=== PATIENT | male | born 1980 | race Caucasian/White ===

== ENCOUNTER → 2017-05-02 06:50 | Outpatient (CLI) | payer OTHER, SELFPAY ==
--- NOTE | 2017-05-02 06:52 | NM_ITS ---
History and Indications: Hypertension, hyperlipidemia, tobacco use and fatigue Procedure: Patient exercised on Baljinder protocol 8 minutes, resting heart rate was 78 bpm, resting blood pressure 170/90, with exercise maximum heart rate achieved was 1 52 bpm which is equal to 84% of the maximum predicted heart rate and a blood pressure was 244/90. Test was started due to hypertensive blood pressure response, patient denied any complained of chest pain. Patient has good exercise capacity achieved 10.1mets of workload on treadmill, the blood pressure response to exercise was hypertensive. Electrocardiogram: Resting electrocardiogram showed sinus rhythm right ventricular conduction delay, with exercise there is less than 1.[address] segment depression noted from the baseline EKG. The EKG portion of the exercise Myoview is nondiagnostic as patient did not achieve the target heart rate. Cardiac stress and resting SPECT images: Cardiac stress and resting SPECT images were obtained using technetium 99 Myoview 10.3 mCi at rest 31.7 mCi at stress, gated SPECT further analysis of segmental wall motion and calculation of the ejection fraction also done. Cardiac stress and rest images show a mild fixed defect in the inferior wall with normal contractility in the gated SPECT is likely secondary to soft tissue attenuation, no reversible ischemia seen. Computer derived ejection fraction is 58% with no obvious regional wall motion abnormality, right ventricle is mildly enlarged with normal contractility. Conclusion: 1. The EKG portion of the exercise Myoview is nondiagnostic as patient did not achieve the target heart rate, patient has good exercise capacity achieved 10.1mets of workload on treadmill, the blood pressure response to exercise was hypertensive, there was no exercise-induced chest discomfort. 2. No obvious scintigraphic evidence of reversible ischemia seen at this level of exercise, computer derived ejection fraction is 58% with no obvious regional wall motion abnormality, right ventricle is mildly enlarged with normal contractility.
[2017-05-02 10:46] LABS: Basophils # 0.1 K/mm3 (0-0.2); Basophils % 0.8 % (0.1-2.0); Eosinophils # 0.2 K/mm3 (0.0-0.4); Eosinophils % 2.2 % (0.1-12.0); Hematocrit 49.6 % (42.0-52.0); Hemoglobin 17.3 g/dL (14.1-18.0); Lymphocytes # 2.3 K/mm3 (0.7-4.5); Mean Corpuscular Hemoglobin 32.5 pg (27.0-31.2); Mean Platelet Volume 10.2 fl (7.4-10.4); Monocytes # 0.5 K/mm3 (0.1-1.0); Monocytes % 5.9 % (1.7-9.3); Neutrophils # 5.1 K/mm3 (1.8-7.8); Neutrophils % 63.2 % (37.0-80.0); Platelet Count 219 K/mm3 (142-424); Red Blood Count 5.33 M/mm3 (4.60-6.20); Red Cell Distribution Width 12.9 % (11.5-17.5); White Blood Count 8.1 K/mm3 (4.8-10.8)
== END ==
PROVIDERS: Family Provider Internal Medicine Adolescent Medicine; PCP Internal Medicine Adolescent Medicine; Visit Provider Nurse Practitioner Family
DX: R07.9 Chest pain, unspecified (principal); I10 Essential (primary) hypertension; E78.1 Pure hyperglyceridemia; Z72.0 Tobacco use
CPT/HCPCS: 36415; 78452; 85025; 93017; A9502

== ENCOUNTER → 2017-05-03 13:13 | Outpatient (CLI) | payer OTHER, SELFPAY ==
[2017-05-03 16:17] LABS: Alanine Aminotransferase 61 U/L (12-78); Albumin Level 4.4 gm/dL (3.4-5.0); Albumin/Globulin Ratio 1.5 (1.1-1.8); Alkaline Phosphatase 81 U/L (46-116); Anion Gap 12.1 mEq/L (5-15); Bilirubin,Total 0.5 mg/dL (0.2-1.0); Blood Urea Nitrogen 12 mg/dL (7-18); Calcium 9.5 mg/dL (8.5-10.1); Carbon Dioxide 30 mmol/L (21.0-32.0); Chloride 102 mmol/L (98-107); Chol/HDL Ratio 4.9 (1-3.5); Cholesterol 191 mg/dL (140-200); Creatinine,Serum 0.93 mg/dL (0.70-1.30); Estimated Glomerular Filt Rate 91 ml/min (>60); GFR (African American) 110 ML/MIN (>60); Globulin 2.9 gm/dl (1.3-3.2); Glucose 89 mg/dL (74-106); HDL Cholesterol 39 mg/dL (27-67); Sodium 140 mmol/L (136-145); Thyroid Stimulating Hormone 1.43 uIU/ml (0.358-3.740); Total Protein,Serum 7.3 gm/dL (6.4-8.2)
[2017-05-03 16:25] LABS: Triglycerides 563 mg/dL (30-200)
[2017-05-03 16:26] LABS: Aspartate Amino Transferase 25 U/L (15-37); Potassium 4.1 mmoL/L (3.5-5.1)
== END ==
PROVIDERS: PCP Nurse Practitioner Family; Visit Provider Nurse Practitioner Family
DX: I10 Essential (primary) hypertension (principal); E78.1 Pure hyperglyceridemia; Z72.0 Tobacco use
CPT/HCPCS: 36415; 80053; 80061; 84443

== ENCOUNTER → 2018-03-03 15:12 | Outpatient (CLI) | payer OTHER, SELFPAY ==
[2018-03-03 15:29] LABS: Basophils # 0.1 K/mm3 (0-0.2); Basophils % 0.9 % (0.1-2.0); Eosinophils # 0.2 K/mm3 (0.0-0.4); Eosinophils % 2.5 % (0.1-12.0); Hematocrit 49.5 % (42.0-52.0); Hemoglobin 17.1 g/dL (14.1-18.0); Lymphocytes # 1.9 K/mm3 (0.7-4.5); Lymphocytes % 21.4 % (10-50); Mean Corpuscular HGB Conc 34.4 g/dL (31.8-35.4); Mean Corpuscular Hemoglobin 32.5 pg (27.0-31.2); Mean Corpuscular Volume 94.4 fl (80-94); Mean Platelet Volume 8.7 fl (7.4-10.4); Monocytes # 0.4 K/mm3 (0.1-1.0); Monocytes % 5.1 % (1.7-9.3); Neutrophils # 6.1 K/mm3 (1.8-7.8); Neutrophils % 70.1 % (37.0-80.0); Platelet Count 221 K/mm3 (142-424); Red Blood Count 5.25 M/mm3 (4.60-6.20); White Blood Count 8.7 K/mm3 (4.8-10.8)
[2018-03-03 16:34] LABS: Troponin I < 0.02 ng/ml (0.00-0.06)
[2018-03-03 16:36] LABS: Albumin/Globulin Ratio 1.1 (1.1-1.8); Alkaline Phosphatase 72 U/L (46-116); Anion Gap 13.1 mEq/L (5-15); Bilirubin,Total 0.4 mg/dL (0.2-1.0); Blood Urea Nitrogen 13 mg/dL (7-18); CKMB Relative Index 1.1 U/L (0-4.0); Calcium 8.8 mg/dL (8.5-10.1); Carbon Dioxide 27 mmol/L (21.0-32.0); Chloride 101 mmol/L (98-107); Creatine Kinase 180 U/L (39-308); Creatinine,Serum 1.11 mg/dL (0.70-1.30); Estimated Glomerular Filt Rate 74 ml/min (>60); GFR (African American) 89 ML/MIN (>60); Globulin 3.5 gm/dl (1.3-3.2); Potassium 4.1 mmoL/L (3.5-5.1); Sodium 137 mmol/L (136-145); Thyroid Stimulating Hormone 1.23 uIU/ml (0.358-3.740); Total Protein,Serum 7.5 gm/dL (6.4-8.2)
[2018-03-03 19:52] LABS: Aspartate Amino Transferase 38 U/L (15-37)
[2018-03-03 19:53] LABS: Glucose 113 mg/dL (74-106)
[2018-03-03 19:54] LABS: Alanine Aminotransferase 51 U/L (12-78)
== END ==
PROVIDERS: Visit Provider Internal Medicine Adolescent Medicine
DX: E78.1 Pure hyperglyceridemia (principal); R42 Dizziness and giddiness; R07.9 Chest pain, unspecified
CPT/HCPCS: 36415; 80053; 82550; 82553; 84443; 84484; 85025

== ENCOUNTER → 2018-03-06 09:30 | Outpatient (CLI) | payer OTHER, SELFPAY ==
--- NOTE | 2018-03-06 09:35 | CI_ITS ---
Cerebrovascular Exam Indications: 780.4 Dizziness and giddiness. IMPRESSIONS 1. The bilateral vertebral arteries are patent with normal antegrade flow. 2. Study suggests less than 20% stenosis involving the right internal carotid artery and the left internal carotid artery. History: Risk factors: Current tobacco use. Carotid duplex study. Complete study and Doppler flow study including spectral analysis, color and paul scale imaging. Location: Vascular laboratory. Patient status: Outpatient. Tables: Arterial flow: + +--------+--------+ Location V sys V ed + +--------+--------+ Right CCA - proximal 91.1cm/s 17.3cm/s + +--------+--------+ Right CCA - distal 108cm/s 28.3cm/s + +--------+--------+ Right ECA 93.6cm/s -------- + +--------+--------+ Right ICA - proximal 79.4cm/s 29.1cm/s + +--------+--------+ Right ICA - mid 96.6cm/s 41.6cm/s + +--------+--------+ Right ICA - distal 96.9cm/s 38.1cm/s + +--------+--------+ Right vertebral 42.1cm/s -------- + +--------+--------+ Left CCA - proximal 98.3cm/s 21.4cm/s + +--------+--------+ Left CCA - distal 109cm/s 28.7cm/s + +--------+--------+ Left ECA 83.3cm/s -------- + +--------+--------+ Left ICA - proximal 63.5cm/s 22.7cm/s + +--------+--------+ Left ICA - mid 89.6cm/s 33.4cm/s + +--------+--------+ Left ICA - distal 91.6cm/s 37cm/s + +--------+--------+ Left vertebral 54.2cm/s -------- + +--------+--------+ Velocity ratios: + + + + + + Right, V sys Right, V ed Left, V sys Left, V ed + + + + + + Max ICA/dist CCA 0.9 1.47 0.84 1.29 + + + + + + (Report amended ) Electronically signed by: Alan Skinner [id number]
== END ==
PROVIDERS: PCP Internal Medicine Adolescent Medicine; Visit Provider Internal Medicine Adolescent Medicine
DX: R42 Dizziness and giddiness (principal)
CPT/HCPCS: 93880

== ENCOUNTER → 2018-07-09 08:04 | Outpatient (CLI) | payer OTHER, SELFPAY | PROVIDERS: PCP Internal Medicine Adolescent Medicine; Visit Provider Nurse Practitioner Family | DX: R07.9 Chest pain, unspecified (principal); R06.02 Shortness of breath; E78.5 Hyperlipidemia, unspecified; F17.200 Nicotine dependence, unspecified, uncomplicated; I10 Essential (primary) hypertension; I65.29 Occlusion and stenosis of unspecified carotid artery | CPT/HCPCS: 93306 ==

== ENCOUNTER → 2019-05-13 12:50 | Outpatient (CLI) | payer OTHER, SELFPAY ==
[2019-05-13 13:43] LABS: Basophils # 0.1 K/mm3 (0-0.2); Basophils % 1.1 % (0.1-2.0); Eosinophils # 0.2 K/mm3 (0.0-0.4); Eosinophils % 2.1 % (0.1-12.0); Hematocrit 48.8 % (42.0-52.0); Hemoglobin 16.9 g/dL (14.1-18.0); Lymphocytes # 2.1 K/mm3 (0.7-4.5); Lymphocytes % 28.4 % (10-50); Mean Corpuscular HGB Conc 34.6 g/dL (31.8-35.4); Mean Corpuscular Hemoglobin 33.1 pg (27.0-31.2); Mean Corpuscular Volume 95.8 fl (80-94); Mean Platelet Volume 9.8 fl (7.4-10.4); Monocytes # 0.3 K/mm3 (0.1-1.0); Monocytes % 3.7 % (1.7-9.3); Neutrophils # 4.8 K/mm3 (1.8-7.8); Neutrophils % 64.8 % (37.0-80.0); Platelet Count 224 K/mm3 (142-424); Red Blood Count 5.09 M/mm3 (4.60-6.20); Red Cell Distribution Width 13.4 % (11.5-17.5); White Blood Count 7.4 K/mm3 (4.8-10.8)
[2019-05-13 17:18] LABS: Alanine Aminotransferase 34 U/L (12-78); Albumin Level 4.6 g/dl (3.5-5.0); Albumin/Globulin Ratio 1.6 (1.1-1.8); Alkaline Phosphatase 55 U/L (38-126); Aspartate Amino Transferase 27 U/L (17-59); Bilirubin,Total 0.3 mg/dl (0.2-1.3); Blood Urea Nitrogen 12 mg/dl (9-20); Calcium 10.2 mg/dl (8.4-10.2); Carbon Dioxide 27 mmol/L (22.0-30.0); Chloride 102 mmol/L (98-107); Chol/HDL Ratio 10.3 (1-3.5); Cholesterol 277 mg/dl (140-200); Estimated Glomerular Filt Rate 93 ml/min (>60); GFR (African American) 113 ML/MIN (>60); Globulin 2.8 g/dL (1.3-3.2); Glucose 132 mg/dl (74-100); HDL Cholesterol 27 mg/dl (40-60); Sodium 136 mmol/L (136-145); Total Protein,Serum 7.4 g/dl (6.3-8.2)
[2019-05-13 17:30] LABS: Direct LDL Cholesterol 84.71 mg/dL (100-129)
[2019-05-13 17:45] LABS: Triglycerides 1122 mg/dl (30-150)
[2019-05-15 13:34] LABS: Hemoglobin A1C 4.9 % (4.0-6.0)
== END ==
PROVIDERS: Internal Medicine Adolescent Medicine; Visit Provider Nurse Practitioner Family
DX: I10 Essential (primary) hypertension (principal); E78.1 Pure hyperglyceridemia; Z77.011 Contact with and (suspected) exposure to lead; Z02.89 Encounter for other administrative examinations; R73.9 Hyperglycemia, unspecified
CPT/HCPCS: 36415; 80053; 80061; 83036; 83655; 85025

== ENCOUNTER → 2020-10-24 12:42 | Outpatient (CLI) | payer OTHER, SELFPAY ==
[2020-10-24 13:52] LABS: Basophils # 0.1 K/mm3 (0-0.2); Eosinophils # 0.1 K/mm3 (0.0-0.4); Monocytes # 0.6 K/mm3 (0.1-1.0); Platelet Count 195 K/mm3 (142-424); Red Cell Distribution Width 13.6 % (11.5-17.5)
[2020-10-24 14:22] LABS: Eosinophils % 1.2 % (0.1-12.0); Hematocrit 52.8 % (42.0-52.0); Lymphocytes # 1.6 K/mm3 (0.7-4.5); Lymphocytes % 17.3 % (10-50); Mean Corpuscular HGB Conc 34.8 g/dL (31.8-35.4); Mean Corpuscular Hemoglobin 33.7 pg (27.0-31.2); Mean Corpuscular Volume 96.8 fl (80-94); Mean Platelet Volume 10.2 fl (7.4-10.4); Monocytes % 6.1 % (1.7-9.3); Neutrophils # 6.8 K/mm3 (1.8-7.8); Neutrophils % 74.4 % (37.0-80.0); Red Blood Count 5.46 M/mm3 (4.60-6.20); White Blood Count 9.1 K/mm3 (4.8-10.8)
[2020-10-24 14:25] LABS: Hemoglobin 18.4 g/dL (14.1-18.0)
[2020-10-24 14:54] LABS: Alanine Aminotransferase 61 U/L (12-78); Albumin/Globulin Ratio 1.7 (1.1-1.8); Alkaline Phosphatase 74 U/L (38-126); Anion Gap 16.4 mEq/L (5-15); Aspartate Amino Transferase 39 U/L (17-59); Bilirubin,Total 0.7 mg/dl (0.2-1.3); Blood Urea Nitrogen 13 mg/dl (9-20); Carbon Dioxide 26 mmol/L (22.0-30.0); Chloride 101 mmol/L (98-107); Chol/HDL Ratio 6.2 (1-3.5); Cholesterol 284 mg/dl (140-200); Estimated Glomerular Filt Rate 93 ml/min (>60); GFR (African American) 112 ML/MIN (>60); Globulin 2.9 g/dL (1.3-3.2); Glucose 92 mg/dl (74-100); HDL Cholesterol 46 mg/dl (40-60); Potassium 4.4 mmoL/L (3.5-5.1); Sodium 139 mmol/L (136-145); Total Protein,Serum 7.9 g/dl (6.3-8.2)
[2020-10-24 15:04] LABS: Triglycerides 747 mg/dl (30-150)
[2020-10-24 15:05] LABS: Direct LDL Cholesterol 120.22 mg/dL (100-129)
[2020-10-24 18:21] LABS: Troponin I < 0.01 ng/ml (0.00-0.034)
== END ==
PROVIDERS: Visit Provider Nurse Practitioner Family
DX: E78.1 Pure hyperglyceridemia (principal); I16.0 Hypertensive urgency; Z72.0 Tobacco use
CPT/HCPCS: 80053; 80061; 84484; 85025

== ENCOUNTER → 2021-04-17 11:37 | Outpatient (CLI) | payer OTHER, SELFPAY ==
[2021-04-17 12:35] LABS: Basophils # 0.1 K/mm3 (0-0.2); Basophils % 1.5 % (0.1-2.0); Eosinophils # 0.2 K/mm3 (0.0-0.4); Eosinophils % 2.6 % (0.1-12.0); Hematocrit 49.6 % (42.0-52.0); Lymphocytes # 1.7 K/mm3 (0.7-4.5); Lymphocytes % 23.8 % (10-50); Mean Corpuscular HGB Conc 34.3 g/dL (31.8-35.4); Mean Corpuscular Hemoglobin 33.8 pg (27.0-31.2); Mean Corpuscular Volume 98.7 fl (80-94); Mean Platelet Volume 9.2 fl (7.4-10.4); Monocytes # 0.4 K/mm3 (0.1-1.0); Monocytes % 5.9 % (1.7-9.3); Neutrophils # 4.7 K/mm3 (1.8-7.8); Neutrophils % 66.2 % (37.0-80.0); Platelet Count 251 K/mm3 (142-424); Red Blood Count 5.02 M/mm3 (4.60-6.20); Red Cell Distribution Width 13.3 % (11.5-17.5); White Blood Count 7.1 K/mm3 (4.8-10.8)
[2021-04-17 13:23] LABS: Chloride 102 mmol/L (98-107); Potassium 4.1 mmoL/L (3.5-5.1); Sodium 137 mmol/L (136-145)
[2021-04-17 13:25] LABS: Blood Urea Nitrogen 10 mg/dl (9-20); Estimated Glomerular Filt Rate 106 ml/min (>60); GFR (African American) 128 ML/MIN (>60)
[2021-04-17 13:26] LABS: Anion Gap 13.1 mEq/L (5-15); Calcium 9.8 mg/dl (8.4-10.2); Carbon Dioxide 26 mmol/L (22.0-30.0); Chol/HDL Ratio 8.2 (1-3.5); Cholesterol 254 mg/dl (140-200); Glucose 95 mg/dl (74-100); HDL Cholesterol 31 mg/dl (40-60)
[2021-04-17 13:37] LABS: Direct LDL Cholesterol 89.15 mg/dL (100-129)
[2021-04-17 14:02] LABS: Ferritin 290 ng/ml (17.9-464)
[2021-04-17 14:10] LABS: Triglycerides 1017 mg/dl (30-150)
== END ==
PROVIDERS: Visit Provider Internal Medicine Adolescent Medicine
DX: I10 Essential (primary) hypertension (principal); E78.5 Hyperlipidemia, unspecified
CPT/HCPCS: 36415; 80048; 80061; 82728; 85025

== ENCOUNTER → 2021-12-30 10:39 | Outpatient (CLI) | payer OTHER, SELFPAY ==
--- NOTE | 2021-12-30 10:39 | MR_ITS ---
PROCEDURE INFORMATION: Exam: MR Right Upper Extremity Joint Without Contrast; Elbow Exam date and time: 12/30/2021 11:29 AM Age: 41 years old Clinical indication: Other: Dafter pop; Additional info: Distal bicep. Distal bicep. Dafter pop at work x 3-4 weeks ago. Tender TECHNIQUE: Imaging protocol: Magnetic resonance imaging of the Right upper extremity without contrast. Exam focused on the elbow. COMPARISON: No relevant prior studies available. FINDINGS: Bones and cartilage: This study is limited by partial failure of fat saturation. Degenerative spurring is identified of the proximal ulna, with involvement of the olecranon process and coronoid process. No dislocation of the elbow. Increased signal intensity is identified on T2 within the bone marrow of the distal humeral shaft as well as the proximal radial and ulnar shafts. This is consistent with hematopoietic/red marrow. A component of marrow edema cannot be excluded. Joint spaces: Moderate elbow effusions. Ulnar (medial) collateral ligament: Partial tear of the ulnar collateral ligament. There is increased increased signal intensity is visualized within the medial collateral ligament the elbow, suggestive of partial tear. Radial collateral ligament of the elbow: No visualized tear. Annular ligament of the radius: No visualized tear. Tendon of the biceps brachii: Mild tendinosis of the distal biceps brachii tendon, without visualized tear. Tendon of the brachialis: No visualized tear of the brachialis tendon. Tendinosis visualized of the distal brachialis tendon. Triceps tendon: No visualized tear. Common flexor tendon: Increased signal intensity is visualized within the proximal common flexor tendon, consistent with partial tear. Common extensor tendon: No visualized tear. Muscles: No visualized acute abnormality. Nerves: Increased signal intensity is identified associated with the ulnar nerve, suggestive of neuropathy. Soft tissues: Mild soft tissue swelling medial to the elbow. IMPRESSION: 1. Increased signal intensity is visualized within the proximal common flexor tendon, consistent with partial tear. 2. Partial tear of the ulnar collateral ligament. Suggested partial tear of the medial collateral ligament. 3. Moderate elbow effusions. 4. Mild tendinosis of the distal biceps brachii tendon, without visualized tear. Tendinosis also visualized of the distal brachialis tendon. 5. Mild soft tissue swelling medial to the elbow. 6. Increased signal intensity is identified associated with the ulnar nerve, suggestive of neuropathy. 7. Additional findings described above.
== END ==
PROVIDERS: PCP Internal Medicine Adolescent Medicine; Visit Provider Orthopaedic Surgery
DX: S46.211A Strain of muscle, fascia and tendon of other parts of biceps, right arm, initial encounter (principal)
CPT/HCPCS: 73221

== ENCOUNTER → 2022-09-03 13:24 | Outpatient (CLI) | payer OTHER, SELFPAY ==
[2022-09-03 14:31] LABS: Basophils # 0.1 K/mm3 (0-0.2); Basophils % 0.6 % (0.1-2.0); Eosinophils # 0.2 K/mm3 (0.0-0.4); Eosinophils % 1.6 % (0.1-12.0); Hematocrit 51.1 % (42.0-52.0); Hemoglobin 17.4 g/dL (14.1-18.0); Lymphocytes # 1.5 K/mm3 (0.7-4.5); Mean Corpuscular Hemoglobin 31.5 pg (27.0-31.2); Mean Corpuscular Volume 92.6 fl (80-94); Mean Platelet Volume 9.8 fl (7.4-10.4); Monocytes # 0.5 K/mm3 (0.1-1.0); Monocytes % 5.4 % (1.7-9.3); Neutrophils # 7.3 K/mm3 (1.8-7.8); Neutrophils % 76.4 % (37.0-80.0); Platelet Count 230 K/mm3 (142-424); Red Blood Count 5.52 M/mm3 (4.60-6.20); White Blood Count 9.6 K/mm3 (4.8-10.8)
[2022-09-03 15:33] LABS: Alanine Aminotransferase 46 U/L (12-78); Albumin Level 4.6 g/dl (3.5-5.0); Albumin/Globulin Ratio 1.7 (1.1-1.8); Alkaline Phosphatase 79 U/L (38-126); Anion Gap 16.1 mEq/L (5-15); Aspartate Amino Transferase 38 U/L (17-59); Bilirubin,Total 0.5 mg/dl (0.2-1.3); Blood Urea Nitrogen 12 mg/dl (9-20); Calcium 9.9 mg/dl (8.4-10.2); Carbon Dioxide 28 mmol/L (22.0-30.0); Chloride 95 mmol/L (98-107); Chol/HDL Ratio 6.4 (1-3.5); Cholesterol 263 mg/dl (140-200); Estimated Glomerular Filt Rate 81 ml/min (>60); GFR (African American) 98 ML/MIN (>60); Globulin 2.7 g/dL (1.3-3.2); Glucose 127 mg/dl (74-100); HDL Cholesterol 41 mg/dl (40-60); Magnesium 1.9 mg/dl (1.6-2.3); Potassium 3.1 mmoL/L (3.5-5.1); Sodium 136 mmol/L (136-145); Total Protein,Serum 7.3 g/dl (6.3-8.2)
[2022-09-03 15:44] LABS: Direct LDL Cholesterol 120.68 mg/dL (100-129)
[2022-09-03 15:49] LABS: Hemoglobin A1C 5.2 % (4.0-6.0); Triglycerides 724 mg/dl (30-150)
[2022-09-03 16:04] LABS: Thyroid Stimulating Hormone 1.17 uIU/mL (0.465-4.68)
== END ==
PROVIDERS: PCP Nurse Practitioner Family; Visit Provider Nurse Practitioner Family
DX: I20.1 Angina pectoris with documented spasm (principal); I10 Essential (primary) hypertension; E78.1 Pure hyperglyceridemia
CPT/HCPCS: 36415; 80053; 80061; 83036; 83735; 84443; 85025

== ENCOUNTER 2024-02-14 09:57 | Outpatient (CLI) | payer BC, SELFPAY ==
[2024-02-14 10:27] LABS: Basophils # 0.1 K/mm3 (0-0.2); Basophils % 1.4 % (0.1-2.0); Eosinophils # 0.2 K/mm3 (0.0-0.4); Hemoglobin 17.3 g/dL (14.1-18.0); Lymphocytes # 1.7 K/mm3 (0.7-4.5); Lymphocytes % 28.3 % (10-50); Mean Corpuscular Hemoglobin 32.9 pg (27.0-31.2); Mean Corpuscular Volume 91.4 fl (80-94); Mean Platelet Volume 9.6 fl (7.4-10.4); Monocytes # 0.5 K/mm3 (0.1-1.0); Monocytes % 7.4 % (1.7-9.3); Neutrophils # 3.6 K/mm3 (1.8-7.8); Neutrophils % 59.9 % (37.0-80.0); Platelet Count 223 K/mm3 (142-424); Red Blood Count 5.25 M/mm3 (4.60-6.20); Red Cell Distribution Width 13.6 % (11.5-17.5)
[2024-02-14 10:45] LABS: Albumin Level 4.7 g/dl (3.5-5.0); Chloride 103 mmol/L (98-107); Sodium 138 mmol/L (136-145)
[2024-02-14 10:47] LABS: Blood Urea Nitrogen 10 mg/dl (9-20); Estimated Glomerular Filt Rate 91 ml/min (>60); GFR (African American) 110 ML/MIN (>60)
[2024-02-14 10:48] LABS: Alanine Aminotransferase 45 U/L (12-78); Albumin/Globulin Ratio 1.8 (1.1-1.8); Alkaline Phosphatase 57 U/L (38-126); Aspartate Amino Transferase 33 U/L (17-59); Bilirubin,Total 0.6 mg/dl (0.2-1.3); Calcium 10.3 mg/dl (8.4-10.2); Carbon Dioxide 28 mmol/L (22.0-30.0); Chol/HDL Ratio 8.3 (1-3.5); Cholesterol 275 mg/dl (140-200); Globulin 2.6 g/dL (1.3-3.2); Glucose 109 mg/dl (74-100); HDL Cholesterol 33 mg/dl (40-60); Total Protein,Serum 7.3 g/dl (6.3-8.2)
[2024-02-14 10:59] LABS: Direct LDL Cholesterol 148.19 mg/dL (100-129)
[2024-02-14 11:16] LABS: Triglycerides 470 mg/dl (30-150)
[2024-02-14 12:25] LABS: Prostate Specific Ag Screen 0.9 ng/ml (0.0-4.0)
[2024-02-14 15:05] LABS: Hemoglobin A1C 5.4 % (4.0-6.0)
== END 2024-02-14 23:59 | disposition home or self-care (01) ==
LOC: LAB 10:03
PROVIDERS: PCP Nurse Practitioner Family; Visit Provider Nurse Practitioner Family
DX: E78.1 Pure hyperglyceridemia (principal); I10 Essential (primary) hypertension; Z12.5 Encounter for screening for malignant neoplasm of prostate; Z00.00 Encounter for general adult medical examination without abnormal findings; Z72.0 Tobacco use
CPT/HCPCS: 36415; 80053; 80061; 83036; 85025; G0103

== ENCOUNTER 2025-03-02 09:43 | Outpatient (CLI) | payer BC, SELFPAY ==
--- NOTE | 2025-03-02 | US_ITS ---
FINAL REPORT TECHNIQUE: Ultrasound images of the kidneys and bladder were obtained. CLINICAL HISTORY: AYSMPTOMATIC PROTEINURIA FINDINGS: The right kidney measures 12.4 cm in length. It is normal in echogenicity. There is no hydronephrosis. The left kidney measures 13.7 cm in length. It is normal in echogenicity. There is no hydronephrosis. There are echogenic nonshadowing foci in the gallbladder measuring 8 mm, probably related to polyps. The spleen is enlarged measuring 16 cm. IMPRESSION: Splenomegaly. Gallbladder polyps. Reviewed, Interpreted and Dictated by Allen Lagunas MD Transcribed by Cee Dan Authenticated and [facility]
[2025-03-02 10:18] LABS: Microscopic, Urine URINE MICROSCOPIC (MICROSCOPIC)
[2025-03-02 10:49] LABS: Bilirubin,Urine Negative (Negative); Color,Urine YELLOW (Yellow); Glucose,Urine (UA) Negative (Negative); Ketones,Urine Negative (Negative); Leukocyte Esterase,Urine Negative (Negative); PH,Urine 6.0 (5.0-8.5); Protein,Urine 2+ (Negative); Specific Gravity, Urine 1.020 (1.005-1.030); Urobilinogen,Urine 0.2 EU/dl (0.2)
[2025-03-02 10:52] LABS: Hematocrit 45.6 % (42.0-52.0); Hemoglobin 16.3 g/dL (14.1-18.0); Immature Granulocytes % 0.5 %; Mean Corpuscular HGB Conc 35.7 g/dL (31.8-35.4); Mean Corpuscular Hemoglobin 32.5 pg (27.0-31.2); Mean Corpuscular Volume 90.8 fl (80-94); Nucleated Red Blood Cells % 0 %; Platelet Count 237 K/mm3 (142-424); Red Blood Count 5.02 M/mm3 (4.60-6.20); Red Cell Distribution Width-SD 40.5 fL; White Blood Count 8.6 K/mm3 (4.8-10.8)
[2025-03-02 11:00] LABS: WBC,Urine Occasional #/hpf (0-3)
[2025-03-02 11:04] LABS: Alanine Aminotransferase 45 U/L (12-78); Albumin Level 4.7 g/dl (3.5-5.0); Albumin/Globulin Ratio 1.8 (1.1-1.8); Alkaline Phosphatase 61 U/L (38-126); Anion Gap 16.2 mEq/L (5-15); Aspartate Amino Transferase 33 U/L (17-59); Bilirubin,Total 0.5 mg/dl (0.2-1.3); Blood Urea Nitrogen 11 mg/dl (9-20); Calcium 10.5 mg/dl (8.4-10.2); Carbon Dioxide 26 mmol/L (22.0-30.0); Chloride 101 mmol/L (98-107); Cholesterol 210 mg/dl (140-200); Creatinine,Serum 0.80 mg/dl (0.66-1.25); Estimated Glomerular Filt Rate 104 ml/min (>60); GFR (African American) 126 ML/MIN (>60); Globulin 2.6 g/dL (1.3-3.2); Glucose 103 mg/dl (74-100); HDL Cholesterol 32 mg/dl (40-60); Potassium 4.2 mmoL/L (3.5-5.1); Sodium 139 mmol/L (136-145); Total Protein,Serum 7.3 g/dl (6.3-8.2)
[2025-03-02 11:15] LABS: Triglycerides 690 mg/dl (30-150)
[2025-03-02 11:34] LABS: Thyroid Stimulating Hormone 1.32 uIU/mL (0.465-4.68)
[2025-03-02 11:42] LABS: Hemoglobin A1C 5.2 % (4.0-6.0)
[2025-03-03 20:08] LABS: Ferritin 291 ng/ml (17.9-464)
[2025-03-03 20:23] LABS: Vitamin B12 675 pg/mL (239-931)
[2025-03-03 20:47] LABS: 25-OH Vitamin D, Total 26.6 ng/mL (30-100)
[2025-03-03 21:37] LABS: Folate 15.40 ng/mL
== END 2025-03-02 23:59 | disposition home or self-care (01) ==
LOC: RAD 09:44
PROVIDERS: PCP Nurse Practitioner Family; Visit Provider Nurse Practitioner Family
DX: K82.4 Cholesterolosis of gallbladder (principal); R80.9 Proteinuria, unspecified; R16.1 Splenomegaly, not elsewhere classified
CPT/HCPCS: 36415; 76770; 80053; 80061; 81001; 82306; 82607; 82728; 82746; 83036; 83970; 84443; 85025

== ENCOUNTER 2025-03-10 09:18 | Outpatient (CLI) | payer BC, SELFPAY ==
--- NOTE | 2025-03-10 09:19 | US_ITS ---
FINAL REPORT CLINICAL HISTORY: SPLENOMEGALY FINDINGS: Cholelithiasis. There is cholesterolosis. No acute gallbladder disease. No biliary ductal dilatation is appreciated. No fluid collections are seen. There is fatty infiltration of the liver. There is an ovoid echogenic focus in or adjacent to the right portal vein which could represent thrombus, air, or volume average artifact. This measures up to 13 mm in length. Contrast-enhanced CT correlation recommended. Limited portions of the right kidney are unremarkable. Pancreas is largely obscured. IMPRESSION: Cholelithiasis without acute gallbladder disease. Cholesterolosis. Abnormal appearance of the right portal vein as above. Recommend correlation with contrast enhanced CT to further characterize. Reviewed, Interpreted and Dictated by Kelsie Rogers MD Transcribed by Aliya Faulkner Authenticated and [facility]
== END 2025-03-10 23:59 | disposition home or self-care (01) ==
PROVIDERS: PCP Nurse Practitioner Family; Visit Provider Nurse Practitioner Family
DX: K80.20 Calculus of gallbladder without cholecystitis without obstruction (principal); R93.89 Abnormal findings on diagnostic imaging of other specified body structures; R16.1 Splenomegaly, not elsewhere classified
CPT/HCPCS: 76705